=== PATIENT | male | born 1970 | race Caucasian/White ===

== ENCOUNTER 2016-09-01 10:24 | Emergency (ER) | payer OTHER ==
--- NOTE | 2016-09-01 10:37 | ED Physician Documentation ---
General Adult - HISTORIAN Historian: patient - HPI Stated Complaint: Neck Pain Chief Complaint: General Adult Onset: other (patient has been having some chronic cervical pain for years.) Timing: still present, worse (over the last week) Severity: moderate Modifying Factors: Has been using Ibuprofen, Tylenol Context: Has had several MRI scans which show some degenerative disc disease. Further Comments: yes (Has had chronic problems with neck pain. About 5 days ago woke up with some increasing pain. Bilateral pain. Has a pressure feeling that cuases him to have headaches. Having some crepitus in the neck. No recenet injury noted. Patient has been having a lot of dental issues also. has been having some more pain related to this.) - ROS CONST: denies: fever, chills - PAST HX Past History: other (OA neck) Other History: none Surgeries/Procedures: none Allergies/Adverse Reactions: Allergies Allergy/AdvReac Type Severity Reaction Status Date / Time No Known Allergies Allergy Verified 09/01/16 10:28 Home Medications: Ambulatory Orders Medication Instructions Recorded Meloxicam [Mobic] 7.5 mg PO BID PRN #60 tablet 09/01/16 Penicillin V Potassium [Pen V K] 500 mg PO QID #40 tablet 09/01/16 - SOCIAL HX Smoking History: other (3 cigars a day) Alcohol Use: rarely Drug Use: none - FAMILY HX Family History: No - VITAL SIGNS Vital Signs: Vital Signs Temp Pulse Resp BP Pulse Ox 77 18 140/88 99 09/01/16 10:25 09/01/16 10:25 09/01/16 10:25 09/01/16 10:25 - REVIEWED ASSESSMENTS Nursing Assessment Reviewed: Yes Vitals Reviewed: Yes General Adult Physical Exam - PHYSICAL EXAM GENERAL APPEARANCE: mild distress EENT: eye inspection normal, ENT inspection normal, pharynx normal, other ( upper denture, multiple lower dental caries) NECK: normal inspection, thyroid normal, supple, other (tender over the parispinal muscles bialterally). No: lymphadenopathy RESPIRATORY: no resp distress, chest non-tender, breath sounds normal. No: wheezes, rales, rhonchi CVS: reg rate & rhythm, heart sounds normal, equal pulses SKIN: warm/dry NEURO: oriented X3, CN's nml as tested, motor nml, sensation nml, mood/affect nml, cognition normal Discharge Clincal Impression: Neck pain, Dental caries Prescriptions: Meloxicam [Mobic] 7.5 mg PO BID PRN #60 tablet PRN Reason: Pain Penicillin V Potassium [Pen V K] 500 mg PO QID #40 tablet Referrals: Markus Sultana MD [Primary Care Provider] - 2 Days Additional Instructions: Take Meloxican as needed for pain. Contact dentist on list to see if you can get an appointment to get your teeth repaired/pulled. Do exercises as instructed. If your pain is not doing better by next Saturday to see your primary care provider for follow-up. Home Medications: Ambulatory Orders Meloxicam [Mobic] 7.5 mg PO BID PRN #60 tablet 09/01/16 Penicillin V Potassium [Pen V K] 500 mg PO QID #40 tablet 09/01/16 Condition: Stable Disposition: HOME, SELF-CARE Decision to Admit: NO Date of Decison to Admit: 09/01/16 Decision Time: 10:48
[2016-09-01] MEDS ORDERED: KETOROLAC TROMETHAMINE 60 MG/2 ML VIAL IM ONE (10:51)
[2016-09-01 11:13] VITALS: BP 132/78
== END 2016-09-01 11:10 | disposition home or self-care (01) ==
LOC: ED 10:24
DX: M54.2 Cervicalgia (principal); K02.9 Dental caries, unspecified; F17.200 Nicotine dependence, unspecified, uncomplicated
CPT/HCPCS: 99283; J1885

== ENCOUNTER 2016-09-02 18:21 | Emergency (ER) | payer OTHER ==
[2016-09-02] MEDS ORDERED: HYDROcodone /APAP 5/325 1 EACH TABLET PO ONE (18:40)
--- NOTE | 2016-09-02 18:41 | ED Physician Documentation ---
General Adult - HISTORIAN Historian: patient - HPI Stated Complaint: dental pain Chief Complaint: General Adult Onset: days ago (1) Timing: still present Severity: moderate Further Comments: yes (Pt is a 46 yo male with dental pain. Pt was seen here yesterday for neck pain and dental pain. Pt was discharged with rx's for Mobic and PCN. Pt filled his rx today and has had only 2 doses PCN. Pt states that Mobic does not significantly improve pain.) - ROS CONST: no problems EYES/ENT: other (dental pain) CVS/RESP: none GI/: none MS/SKIN/LYMPH: none NEURO/PSYCH: headache - PAST HX Past History: other (dental caries; neck pain) Allergies/Adverse Reactions: Allergies Allergy/AdvReac Type Severity Reaction Status Date / Time No Known Allergies Allergy Verified 09/02/16 18:40 Home Medications: Ambulatory Orders Medication Instructions Recorded Meloxicam [Mobic] 7.5 mg PO BID PRN #60 tablet 09/01/16 Penicillin V Potassium [Pen V K] 500 mg PO QID #40 tablet 09/01/16 - SOCIAL HX Smoking History: cigarettes - FAMILY HX Family History: No - VITAL SIGNS Vital Signs: Vital Signs Temp Pulse Resp BP Pulse Ox 132/78 09/01/16 11:10 - REVIEWED ASSESSMENTS Nursing Assessment Reviewed: Yes Vitals Reviewed: Yes Progress - Progress Progress: Rx [place] (5/325) 1-2 po q 4-6h prn. #15 Continue Penicillin VK as directed. f/u dentist. ED Results Lab/Radiology - Orders Orders: ED Orders Category Date Time Status HYDROcodone /APAP 5/325 [[place] 5/325] Med 09/02/16 18:40 Once 4 each PO NOW ONE General Adult Physical Exam - PHYSICAL EXAM GENERAL APPEARANCE: moderate distress EENT: pharynx normal, other (poor dentition; pain, swelling L lower molars.) RESPIRATORY: no resp distress CVS: reg rate & rhythm BACK: normal inspection SKIN: warm/dry, normal color EXTREMITIES: normal range of motion NEURO: oriented X3, motor nml, sensation nml Discharge Clincal Impression: Dental caries Referrals: Markus Sultana MD [Primary Care Provider] - Additional Instructions: Rx [place] (5/325). Take one or two tablets by mouth every 4 to 6 hrs as needed for moderate to severe pain. Continue Penicillin VK as previously prescribed. Home Medications: Ambulatory Orders Meloxicam [Mobic] 7.5 mg PO BID PRN #60 tablet 09/01/16 Penicillin V Potassium [Pen V K] 500 mg PO QID #40 tablet 09/01/16 Condition: Good Decision to Admit: NO Decision Time: 18:42
[2016-09-02 18:45] VITALS: BP 151/86
== END 2016-09-02 18:53 ==
LOC: ED 18:21
DX: K02.9 Dental caries, unspecified (principal)
CPT/HCPCS: 99282; A9270-GY

== ENCOUNTER 2016-12-24 10:37 | Emergency (ER) | payer OTHER ==
[2016-12-24 10:59] LABS: EOSINOPHILS % 2.5 % (0.0-6.8); MEAN CORPUSCULAR HEMOGLOBIN 31.7 pg (28.0-34.0); MEAN CORPUSCULAR VOLUME 93.7 fl (80.0-100.0); MONOCYTES % 7.5 % (0.0-11.0); NEUTROPHILS # 6.8 # k/uL (1.4-7.7)
[2016-12-24 11:21] LABS: eGFR (African) > 60; eGFR (Non-African) > 60
--- NOTE | 2016-12-24 11:51 | ED Physician Documentation ---
General Adult - HISTORIAN Historian: patient - HPI Stated Complaint: chest pain Chief Complaint: General Adult Further Comments: yes (46 year old male patient presents with complaints of left anterior chest wall pain which describes as "pinching". Patient states the pain started after he woke up this morning. Denies SOB, N/V or diaphoresis with pain; denies any heavy lifting or injury. Patient reports having all of his teeth pulled 2 weeks ago; c/o nausea every morning and increased diarrhea since procedure. Denies vomiting. Reports 5-10 pound weight loss. Cannot recall last wellness visit with Dr Sultana.) - ROS CONST: weight loss EYES/ENT: none CVS/RESP: chest pain. denies: shortness of breath, cough GI/: nausea, diarrhea. 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) Surgeries/Procedures: other Allergies/Adverse Reactions: Allergies Allergy/AdvReac Type Severity Reaction Status Date / Time No Known Allergies Allergy Verified 12/24/16 10:59 Home Medications: Ambulatory Orders Medication Instructions Recorded Ondansetron HCl Rapdis [Zofran Odt] 4 mg PO Q6 PRN #30 tab 12/24/16 - SOCIAL HX Smoking History: cigarettes (1/2 ppd x 30 years) - FAMILY HX Family History: No - VITAL SIGNS Vital Signs: Vital Signs Temp Pulse Resp BP Pulse Ox 98.2 F 70 17 129/92 97 12/24/16 10:37 12/24/16 10:38 12/24/16 10:37 12/24/16 10:37 12/24/16 10:51 - REVIEWED ASSESSMENTS Nursing Assessment Reviewed: Yes Vitals Reviewed: Yes Progress - Progress Progress: Discussed lab and xray finding. Offered observation admission. Patient does not wish to be admitted at the time. Follow up appointment made for tomorrow with Dr Sultana at 1445. Reviewed symptoms to return to ER for; patient verbalized understanding. Denies any nausea while in ER. ED Results Lab/Radiology - Lab Results Lab Results: Lab Results 05/15/17 05/15/17 05/15/17 10:55 10:55 10:55 WBC 9.30 K/ul K/ul (4.00-12.00) RBC 5.19 M/ul M/ul (3.90-5.20) Hgb 16.5 g/dL g/dL (12.0-18.0) Hct 48.6 % % (37.0-53.0) MCV 93.7 fl fl (80.0-100.0) MCH 31.7 pg pg (28.0-34.0) MCHC 33.9 g/dL g/dL (30.0-36.0) RDW 12.2 % % (11.3-14.3) Plt Count 306 K/mm3 K/mm3 (130-400) Neut % (Auto) 72.6 % % (39.0-79.0) Lymph % (Auto) 14.9 % L % (16.0-50.0) [place] % (Auto) 7.5 % % (0.0-11.0) Eos % (Auto) 2.5 % % (0.0-6.8) Baso % (Auto) 1.0 (0.0-1.5) Neut # 6.8 # k/uL # k/uL (1.4-7.7) Lymph # 1.4 # k/uL # k/uL (0.6-4.0) [place] # 0.7 # k/uL # k/uL (0.0-0.9) Eos # 0.2 # k/uL # k/uL (0.0-0.6) Baso # 0.1 # k/uL # k/uL (0.0-0.5) Reactive Lymphs % 1.5 % % (0.0-5.0) Reactive Lymphs # 0.1 # k/uL # k/uL (0.0-0.8) Sodium 138 mmol/L mmol/L (136-145) Potassium 3.9 mmol/L mmol/L (3.5-5.0) Chloride 103 mmol/L mmol/L (98-110) Carbon Dioxide 31 mmol/L mmol/L (20-32) BUN 13 mg/dL mg/dL (10-26) Creatinine 0.8 mg/dL mg/dL (0.4-1.5) Estimated Creat Clear 105 Est GFR ( Amer) > 60 (60 - ) Est GFR (Non-Af Amer) > 60 (60 - ) Glucose 103 mg/dL H mg/dL (70-99) Calcium 10.0 mg/dL mg/dL (8.5-10.5) Total Bilirubin 1.2 mg/dL mg/dL (0.2-1.2) AST 16 U/L U/L (0-41) ALT 16 U/L U/L (0-45) Alkaline Phosphatase 87 U/L U/L (46-116) Troponin I < 0.03 ng/mL L ng/mL (0.03-0.06) Total Protein 8.0 g/dL g/dL (6.0-8.5) Albumin 5.0 g/dL g/dL (3.0-5.5) - Radiology Radiology Impressions: CLINICAL HISTORY: Cough. Shortness of breath. Chest pain. FINDINGS: Examination of the chest in single portable AP view 12/24/2016 1054 hr with comparison to examination of 10/23/2013 demonstrates the lungs to be clear. Cardiovascular and mediastinal silhouettes are stable. Monitor leads superimpose the chest. Bony thorax is intact. IMPRESSION: No significant change. No active disease. - Orders Orders: ED Orders Category Date Time Status Continuous EKG monitoring Q30M Care 12/24/16 10:51 Active Continuous Pulse Oximetry Q30M Care 12/24/16 10:[address] Saline Lock/IV NOW Care 12/24/16 10:51 Active CHEST 1 VIEW [RAD] Stat Exams 12/24/16 10:51 Taken CBC/PLATELET/DIFF Stat Lab 12/24/16 10:55 Completed CMP Stat Lab 12/24/16 10:55 Completed TROPONIN I (cTnI) Stat Lab 12/24/16 10:55 Completed UA W/MICRO IF INDICATED Stat Lab 12/24/16 10:58 Ordered Urine drug screen [DRUG SCREEN URINE MEDICAL ONLY] Stat Lab 12/24/16 Ordered EKG WITH COMPARISON Stat Ther 12/24/16 10:51 Completed General Adult Physical Exam - PHYSICAL EXAM GENERAL APPEARANCE: [id number] N EENT: eye inspection normal, ENT inspection normal, pharynx normal, no signs of dehydration, DINO, no nystagmus, TM's nml RESPIRATORY: no resp distress, chest non-tender, breath sounds normal CVS: reg rate & rhythm, heart sounds normal, equal pulses, no murmur, no gallop , PMI nml, no JVD, no friction rub, 24 ABDOMEN: soft, no organomegaly, normal bowel sounds, no abdominal bruit, no distension BACK: normal inspection, no CVA tenderness SKIN: normal color, warm/dry, NR, INT, PAL, DR EXTREMITIES: non-tender, normal range of motion, no evidence of injury, no edema , J, 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 Try milk shakes, boost, or protein powder between meals. Return to Er if your chest discomfort becomes worse and is accompanied by shortness of breath and diaphoresis. Home Medications: Ambulatory Orders Ondansetron HCl Rapdis [Zofran Odt] 4 mg PO Q6 PRN #30 tab 12/24/16 Condition: Stable Disposition: 01 HOME, SELF-CARE Decision to Admit: NO Decision Time: 11:52
[2016-12-24 12:18] LABS: APPEARANCE,URINE Clear (CLEAR); COLOR,URINE Yellow (YELLOW); OCCULT BLOOD,URINE Negative (NEGATIVE); UROBILINOGEN URINE 0.2 Eu (0.2-1.0)
[2016-12-24 12:20] LABS: AMPHETAMINE NEGATIVE ng/mL (<1000); BARBITURATES NEGATIVE ng/mL (<300); CANNABINOIDS NON NEGATIVE ng/mL (<50); COCAINE NEGATIVE ng/mL (<150); METHAMPHETAMINE NEGATIVE ng/mL (<1000); METHYLENEDIOXYMETHAMPHETAMINE NEGATIVE ng/mL (<500)
[2016-12-24 12:56] VITALS: BP 127/86
--- NOTE | 2016-12-24 14:23 | Diagnostic Imaging Report ---
[facility] [address] [facility].[address] [address] Report Submission Date: December 24, 2016 11:07:14 AM CDT Patient Study Name: LISA DAILEY Date: December 24, 2016 10:54:02 AM CDT Modality Type: CR Gender: M Description: CHEST : 74 Institution: [facility] Physician ARTHUR ROCHE (BUSINESS ARCHITECT) - ER Chest -one view CLINICAL HISTORY: Cough. Shortness of breath. Chest pain. FINDINGS: Examination of the chest in single portable AP view 12/24/2016 1054 hr with comparison to examination of 10/23/2013 demonstrates the lungs to be clear. Cardiovascular and mediastinal silhouettes are stable. Monitor leads superimpose the chest. Bony thorax is intact. IMPRESSION: No significant change. No active disease. Electronically signed on December 24, 2016 11:07:14 AM CDT by: Jean FITZGERALD
== END 2016-12-24 12:10 | disposition home or self-care (01) ==
LOC: ED 10:37
DX: R07.9 Chest pain, unspecified (principal); F17.210 Nicotine dependence, cigarettes, uncomplicated; R11.2 Nausea with vomiting, unspecified
CPT/HCPCS: 71010; 80053; 80377; 81002; 84484; 85025; 99283; G0481; S1016

== ENCOUNTER 2017-05-16 11:06 | Outpatient (CLI) | payer OTHER ==
--- NOTE | 2017-05-16 14:01 | Diagnostic Imaging Report ---
MANN VEGA [facility] [address] [facility].[address] [address] Report Submission Date: May 16, 2017 11:33:18 AM CDT Patient Study Name: LISA DAILEY Date: May 16, 2017 11:07:28 AM CDT Modality Type: CR Gender: M Description: SPINE : 74 Institution: [facility] Physician: MANN VEGA Examination: Plain film thoracic spine History: Mid back discomfort Findings: 4 views of the thoracic spine demonstrate normal height. No anterior compression. Few anterior osteophytes. No soft tissue abnormalities. Impression: No compression deformity. No acute osseous process. Electronically signed on May 16, 2017 11:33:18 AM CDT by: Joe FITZGERALD
== END 2017-05-16 11:07 ==
LOC: RAD 11:06
PROVIDERS: ATTEND Physician Assistant
DX: M54.9 Dorsalgia, unspecified (principal)
CPT/HCPCS: 72072

== ENCOUNTER 2017-07-23 06:46 | Emergency (ER) | payer OTHER ==
--- NOTE | 2017-07-23 07:01 | ED Physician Documentation ---
Chest Pain - HISTORIAN Historian: patient - HPI Chief Complaint: Chest Pain Onset: days ago (yesterday morning.) Timing: sudden onset (when he woke up yesterday morning) Duration: waxing, waning Last known Well Date: 07/22/17 Last Known Well Time: 08:00 Last known Well Code/Unknown Code: Known Severity: moderate Quality: pressure, tightness Chest Pain Radiation: no radiation Chest Pain Signs/Symptoms: weakness. denies: nausea, vomiting, diaphoresis, dizziness, dyspnea, tachypnea, tachycardia, hypotension, palpitations Worsened By: nothing Relieved By: nothing Further Comments: yes (47 year old male patient presents with complaints of chest pain. Patient reports pain started yesterday morning when he got up. C/ O pain continuing intermittently, "tightness", denies SOB, N/V or diaphoresis.) - ROS CONST: none MS/LYMPH: none GI/: none EYES/ENT: none SKIN/ENDO: none NEURO/PSYCH: none - PAST HX OK risk factors: no pertinent history DVT/PE Risk Factors: none TAD/AAA risk factors: none Neuro deficit: none GI disease: none Lung disease: none Surgeries/Procedures: none - SOCIAL HX Smoking History: cigarettes (1/2 pack per day x 30 years) - FAMILY HX Family HX: CAD over 55 - VITAL SIGNS Vital Signs: Vital Signs Temp Pulse Resp BP Pulse Ox 127/86 12/24/16 12:10 - REVIEWED ASSESSMENTS Nursing Assessment Reviewed: Yes Vitals Reviewed: Yes <ARTHUR ROCHE - Last Filed: 07/23/17 07:06> - HPI Context: rest - PAST HX OK risk factors: denies: hypertension, diabetes Type 2, hyperlipidemia, cardiac disease Immunizations: referred to PCP - SOCIAL HX Alcohol Use: none Drug Use: none - VITAL SIGNS Vital Signs: Vital Signs Temp Pulse Resp BP Pulse Ox 98.3 F 83 19 127/86 99 07/23/17 06:47 07/23/17 07:29 07/23/17 06:47 12/24/16 12:10 07/23/17 07:29 <Serafin Wu - Last Filed: 07/23/17 10:39> - PAST HX Allergies/Adverse Reactions: Allergies Allergy/AdvReac Type Severity Reaction Status Date / Time No Known Allergies Allergy Verified 07/23/17 07:01 Progress - EKG/XRAY/CT EKG: rhythm (SR, rate 78, no acute changes) <ARTHUR ROCHE - Last Filed: 07/23/17 07:06> - Progress Progress: 0715 Patient states the pain is doing pretty good except when he moves his arm. Mild increase in the pain with deep breathing. <Serafin Wu - Last Filed: 07/23/17 10:39> ED Results Lab/Radiology - Orders Orders: ED Orders Category Date Time Status Continuous EKG monitoring Q30M Care 07/23/17 06:59 Ordered Continuous Pulse Oximetry Q30M Care 07/23/17 06:59 Ordered CBC/PLATELET/DIFF Stat Lab 07/23/17 06:59 Ordered CMP Stat Lab 07/23/17 06:59 Ordered TROPONIN I (cTnI) Stat Lab 07/23/17 06:59 Ordered EKG WITH COMPARISON Stat Ther 07/23/17 06:55 Ordered <ARTHUR ROCHE - Last Filed: 07/23/17 07:06> - Lab Results Lab Results: Lab Results 07/23/17 07/23/17 07/23/17 07:00 07:00 07:00 WBC 7.30 K/ul K/ul (4.00-12.00) RBC 4.85 M/ul M/ul (3.90-5.20) Hgb 15.9 g/dL g/dL (12.0-18.0) Hct 45.5 % % (37.0-53.0) MCV 93.7 fl fl (80.0-100.0) MCH 32.8 pg pg (28.0-34.0) MCHC 35.0 g/dL g/dL (30.0-36.0) RDW 12.3 % % (11.3-14.3) Plt Count 378 K/mm3 K/mm3 (130-400) Neut % (Auto) 65.8 % % (39.0-79.0) Lymph % (Auto) 18.9 % % (16.0-50.0) [place] % (Auto) 8.0 % % (0.0-11.0) Eos % (Auto) 4.8 % % (0.0-6.8) Baso % (Auto) 0.6 (0.0-1.5) Neut # (Auto) 4.8 # k/uL # k/uL (1.4-7.7) Lymph # (Auto) 1.4 # k/uL # k/uL (0.6-4.0) [place] # (Auto) 0.6 # k/uL # k/uL (0.0-0.9) Eos # (Auto) 0.4 # k/uL # k/uL (0.0-0.6) Baso # (Auto) 0.0 # k/uL # k/uL (0.0-0.5) Reactive Lymphs % 1.9 % % (0.0-5.0) Reactive Lymphs # 0.1 # k/uL # k/uL (0.0-0.8) Sodium 137 mmol/L mmol/L (136-145) Potassium 3.7 mmol/L mmol/L (3.5-5.1) Chloride 99 mmol/L mmol/L (98-107) Carbon Dioxide 28 mmol/L mmol/L (22-30) BUN 14 mg/dL mg/dL (9-20) Creatinine 0.80 mg/dL mg/dL (0.66-1.25) Estimated Creat Clear 100 Est GFR ( Amer) > 60 (60 - ) Est GFR (Non-Af Amer) > 60 (60 - ) Glucose 105 mg/dL mg/dL (74-106) Calcium 9.4 mg/dL mg/dL (8.4-10.2) Total Bilirubin 1.0 mg/dL mg/dL (0.2-1.3) AST 19 U/L U/L (15-46) ALT 28 U/L U/L (13-69) Alkaline Phosphatase 83 U/L U/L (38-126) Troponin I < 0.03 ng/mL L ng/mL (0.03-0.06) Total Protein 7.8 g/dL g/dL (6.3-8.2) Albumin 4.5 g/dL g/dL (3.5-5.0) - Radiology Radiology Impressions: Chest x-ray: Examination: PA and lateral chest. History: Evaluate lung garcia. Comparison exam: 24 Dec 2016 Findings: PA lateral chest demonstrate a normal cardiac and mediastinal silhouette. No focal infiltrate. No blunting of the costophrenic margins. Osseous structures are appropriate for age. Impression: No acute pulmonary process. - Orders Orders: ED Orders Category Date Time Status Continuous EKG monitoring Q30M Care 07/23/17 06:59 Active Continuous Pulse Oximetry Q30M Care 07/23/17 06:59 Active CHEST P.A.&LAT 2 VIEWS [RAD] Routine Exams 07/23/17 Ordered CBC/PLATELET/DIFF Stat Lab 07/23/17 07:00 Completed CMP Stat Lab 07/23/17 07:00 Completed D DIMER Routine Lab 07/23/17 Ordered TROPONIN I (cTnI) Stat Lab 07/23/17 07:00 Completed EKG WITH COMPARISON Stat Ther 07/23/17 06:55 Completed <Serafin Wu - Last Filed: 07/23/17 10:39> Chest Pain Physical Exam - EXAM General Appearance: no acute distress, alert EENT: eye inspection normal, DINO Respiratory: no resp. distress, nml breath sounds, other (left anterior chest wall discomfort with palpation) CVS: reg. 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 No: JVD present, lymphadenopathy Respiratory: manifests distinct pain on movement (against resistance), left, arm , other <Serafin Wu - Last Filed: 07/23/17 10:39> Discharge <ARTHUR ROCHE - Last Filed: 07/23/17 07:06> Decision to Admit: NO Date of Decison to Admit: 07/23/17 Decision Time: 08:12 <Serafin Wu - Last Filed: 07/23/17 10:39> Clincal Impression: Chest wall pain Referrals: Markus Sultana MD [Primary Care Provider] - 2 Days Additional Instructions: Warm compress to the chest wall area. Take some Ibuprofen or Aleve to try to help with the pain. Follow-up with Dr Sultana within the next two weeks. Condition: Stable Disposition: 01 HOME, SELF-CARE
[2017-07-23 07:19] LABS: BASOPHILS % 0.6 (0.0-1.5); EOSINOPHILS % 4.8 % (0.0-6.8); MEAN CORPUSCULAR HEMOGLOBIN 32.8 pg (28.0-34.0); MEAN CORPUSCULAR VOLUME 93.7 fl (80.0-100.0); NEUTROPHILS # 4.8 # k/uL (1.4-7.7)
[2017-07-23 07:31] LABS: eGFR (African) > 60; eGFR (Non-African) > 60
[2017-07-23 08:33] VITALS: BP 133/84
--- NOTE | 2017-07-23 15:38 | Diagnostic Imaging Report ---
BRITTNEE CORTEZ [facility] [address] [facility] [address] [address] Report Submission Date: Jul 23, 2017 8:06:53 AM ETCHER ELECTROLYTIC Patient Study Name: LISA DAILEY Date: Jul 23, 2017 7:51:57 AM ETCHER ELECTROLYTIC Modality Type: CR Gender: M Description: CHEST : 74 Institution: [facility] Physician: BRITTNEE CORTEZ Examination: PA and lateral chest. History: Evaluate lung garcia. Comparison exam: 24 Dec 2016 Findings: PA lateral chest demonstrate a normal cardiac and mediastinal silhouette. No focal infiltrate. No blunting of the costophrenic margins. Osseous structures are appropriate for age. Impression: No acute pulmonary process. Electronically signed on Jul 23, 2017 8:06:53 AM ETCHER ELECTROLYTIC by: Joe FITZGERALD
== END 2017-07-23 08:16 | disposition home or self-care (01) ==
LOC: ED 06:46
DX: R07.89 Other chest pain (principal)
CPT/HCPCS: 71020; 80053; 84484; 85025; 85379; 99283; S1016

== ENCOUNTER 2018-04-15 12:12 | Emergency (ER) | payer SELFPAY ==
[2018-04-15] MEDS: LIDOCAINE 1%/EPINEPHRINE 20ML VIAL IJ ONE (12:35)
--- NOTE | 2018-04-15 12:35 | ED Physician Documentation ---
Lower Extremity Injury - HISTORIAN Historian: patient - HPI Stated Complaint: [place] lac Chief Complaint: Lower Extremity Injury Additional Information: Patient was in a shed when his leg hit something that caused a laceration. He b elieves it was a piece of glass. Bleeding well controlled. Last tetanus was >15yrs. Denies any numbness. Onset: minutes (30) Where: home Severity: mild Context: laceration Associated Symptoms:: denies: tingling, numbness distally, swelling Modifying Factors:: none - ROS CONST: no problems. denies: fever, chills CVS/RESP: denies: chest pain, shortness of breath GI/: denies: nausea, vomiting MS/SKIN/LYMPH: denies: rash NEURO: headache (hx of migraines) - PAST HX Past History: none Immunizations: denies: tetanus Allergies/Adverse Reactions: Allergies Allergy/AdvReac Type Severity Reaction Status Date / Time No Known Allergies Allergy Verified 04/15/18 12:23 Home Medications: Ambulatory Orders Medication Instructions Recorded NK 04/15/18 - SOCIAL HX Smoking History: greater than 1 pack/day Alcohol Use: rarely Drug Use: marijuana - FAMILY HX Family History: none - VITAL SIGNS Vital Signs: Vital Signs Temp Pulse Resp BP Pulse Ox 76 15 126/76 97 04/15/18 13:05 04/15/18 13:05 04/15/18 13:05 04/15/18 13:05 - REVIEWED ASSESSMENTS Nursing Assessment Reviewed: Yes Vitals Reviewed: Yes Procedures - Laceration/Wound Repair Right Anterior Wound Length: 3cm Wound's Depth, Shape: into muscle, linear Wound Explored: clean Betadine Prep?: No (dynaHex) Anesthesia: Lidocaine w/ Epi Volume of Anesthetic: 3ml Wound Debrided: none Wound Repaired With: sutures Suture Size/Type: 5:0 Number of Sutures: 5 Layer Closure?: No ED Results Lab/Radiology - Orders Orders: ED Orders Category Date Time Status Diph,Pertuss(Acell),Tet Vac/Pf [Adacel] Med 04/15/18 12:42 Discontinued 0.5 ml IM .STK-MED ONE Diph,Pertuss(Acell),Tet Vac/Pf [Adacel] Med 04/15/18 13:00 Discontinued 0.5 ml IM 1T LIDOCAINE 2% PF 5ml Disp Syrin [Xylocaine] Med 04/15/18 12:30 Discontinued 100 mg .ROUTE .STK-MED ONE Lidocaine 1%/Epinephrine [Xylocaine 1%-EPI 1:100,000] Med 04/15/18 12:33 Di scontinued 1 ml IJ NOW ONE Lidocaine HCl/Pf [Lidocaine 2% Vial] Med 04/15/18 12:28 Discontinued 20 mg IJ NOW ONE Lower Extremities Injury Phy - Physical Exam General Appearance: no acute distress, alert Hips: bilateral hip: non-tender, normal inspection, normal range of motion, no evidence of injury Legs: right: pain, soft tissue tenderness, left: normal inspection, no evidence of injury, bilateral: non-tender, normal range of motion, N/A: deformity (none), ecchymosis (none) Knees: bilateral: non-tender, normal inspection, normal range of motion, no evidence of injury Ankle: bilateral: non-tender, normal inspection, normal range of motion, no evidence of injury Gait: normal Neuro/Vascular/Tendon: no vascular compromise, motor nml, sensation nml Resp/CVS: chest non-tender, breath sounds nml, heart sounds nml, no resp. distress, lungs clear Discharge Clincal Impression: Laceration of leg, right Referrals: Markus Sultana MD [Primary Care Provider] - 2 Days Additional Instructions: Keep area clean and dry. Dress with triple antibiotic ointment and bandaid. May shower. Watch for any signs of infection. Have sutures removed in 7 days. Condition: Stable Disposition: 01 HOME, SELF-CARE Decision to Admit: NO Date of Decison to Admit: 04/15/18 Decision Time: 12:59
[2018-04-15 12:39] VITALS: BP 126/76
[2018-04-15] MEDS ORDERED: DIPH,PERTUSS(ACELL),TET VAC/PF 0.5 ML DISP.SYRIN IM ONE (12:42)
[2018-04-15] MEDS: LIDOCAINE 2% PF 5ml Disp Syrin ONE (12:46)
[2018-04-15] MEDS: LIDOCAINE HCL/PF 2% 100 MG/5 ML VIAL IJ ONE (12:47)
[2018-04-15] MEDS: DIPH,PERTUSS(ACELL),TET VAC/PF 0.5 ML DISP.SYRIN IM SCH (12:47)
== END 2018-04-15 13:05 | disposition home or self-care (01) ==
LOC: ED 12:12
DX: S81.811A Laceration without foreign body, right lower leg, initial encounter (principal); W26.8XXA Contact with other sharp object(s), not elsewhere classified, initial encounter; Y92.019 Unspecified place in single-family (private) house as the place of occurrence of the external cause; Y93.9 Activity, unspecified; Y99.9 Unspecified external cause status
CPT/HCPCS: 12002; 90471; 90715; 96372

== ENCOUNTER 2019-06-25 13:28 | Emergency (ER) | payer BC ==
--- NOTE | 2019-06-25 13:36 | ED Physician Documentation ---
Low Back Pain - HISTORIAN Historian: patient - HPI Chief Complaint: Low Back Pain/ Injury Additional Information: 49 year old male presents to the ER with c/o right hip pain that started 6 days ago- states he lifted his 50 lb daughter and hurt his hip. He needs work excuse. History: history of chronic pain:, back pain Onset: days ago Duration: continues in ED Recent Injury: Yes (states lifting daughter) Context: lifting Where: home Other Injuries: back Severity: mild Quality: similar- prior back pain Associated Symptoms: denies: fever, chills, nausea, vomiting, problems urinating, difficulty walking Worsened By:: upright position Relieved By: nothing - ROS CONST: no problems CVS/RESP: none EYES/ENT: none MS/SKIN/LYMPH: back pain Neuro/Psych: none GI/: denies: abdominal pain - PAST HX Past History: back pain Surgeries/Procedures: appendectomy, other (orthopedic) Allergies/Adverse Reactions: Allergies Allergy/AdvReac Type Severity Reaction Status Date / Time tramadol Allergy Verified 06/25/19 13:46 Home Medications: Ambulatory Orders Medication Instructions Recorded Methylprednisolone [Medrol] 4 mg PO DAILY #21 tab.ds.pk 06/25/19 - SOCIAL HX Smoking History: greater than 1 pack/day Alcohol Use: none Drug Use: none - FAMILY HX Family History: none - VITAL SIGNS Vital Signs: Vital Signs Temp Pulse Resp BP Pulse Ox 98.9 F 72 22 138/87 97 06/25/19 13:40 06/25/19 13:40 06/25/19 13:40 06/25/19 13:40 06/25/19 13:40 - REVIEWED ASSESSMENTS Nursing Assessment Reviewed: Yes Vitals Reviewed: Yes ED Results Lab/Radiology - Orders Orders: ED Orders Category Date Time Status Ketorolac Tromethamine [Toradol] Med 06/25/19 13:44 Discontinued 60 mg IM NOW ONE Low Back Pain/Injury - Physical Exam General Appearance: no acute distress, alert EENT: eye inspection normal, ENT inspection normal, pharynx normal, DINO Neck: non-tender Resp/CVS: breath sounds nml, heart sounds nml Abdomen: non-tender Back: painless ROM Neuro/Psych: oriented x3, motor nml, sensation nml Skin: warm/dry, normal color Extremities: non-tender, normal range of motion Discharge Clincal Impression: Muscle spasm, Right hip pain Prescriptions: Methylprednisolone [Medrol] 4 mg PO DAILY #21 tab.ds.pk Referrals: Markus Sultana MD [Primary Care Provider] - 2 Days Additional Instructions: Take Medrol dose pack as directed Alternate Ibuprofen and Tylenol as needed Use heating pad, Icy hot, bengay, biofreeze Follow up with PCP Condition: Good Disposition: 01 HOME, SELF-CARE Decision to Admit: NO Decision Time: 14:00
[2019-06-25] MEDS ORDERED: KETOROLAC TROMETHAMINE 60 MG/2 ML VIAL IM ONE (13:44)
[2019-06-25 14:01] VITALS: BP 127/86
== END 2019-06-25 13:59 | disposition home or self-care (01) ==
LOC: ED 13:28
DX: M62.838 Other muscle spasm (principal)
CPT/HCPCS: 96372; 99284; J1885